=== PATIENT | male | born 1970 | race Two or more races ===

== ENCOUNTER 2018-02-09 01:57 | Emergency (ER) | payer SELFPAY ==
[~2018-02-09] VITALS: Ht 170.2 cm; Wt 77.1 kg
--- NOTE | 2018-02-09 02:50 | NUR ---
Dr. Francisco at bedside for MSE.
[2018-02-09] MEDS: HYDROMORPHONE 1 MG/1 ML DISP.SYRIN IM ONE (02:56)
[2018-02-09] MEDS ORDERED: HYDROMORPHONE 2 MG/1 ML DISP.SYRIN ONE (02:56)
[2018-02-09] MEDS ORDERED: diphenhydrAMINE 50 MG/1 ML VIAL IV ONE (03:00)
[2018-02-09] MEDS ORDERED: TDAP DIPH,PERTUSS,TET VAC/PF 0.5 ML DISP.SYRIN IM ONE (03:03)
[2018-02-09] MEDS ORDERED: diphenhydrAMINE 50 MG/1 ML VIAL ONE (03:03)
[2018-02-09] MEDS: diphenhydrAMINE 50 MG/1 ML VIAL IM ONE (03:08)
[2018-02-09] MEDS: TDAP DIPH,PERTUSS,TET VAC/PF 0.5 ML DISP.SYRIN IM ONE (03:08)
[2018-02-09] MEDS: LIDOCAINE HCL 1% 20 ML VIAL IJ ONE (03:09)
--- NOTE | 2018-02-09 04:29 | NUR ---
Patient discharged to home in stable conditon. Written and verbal after care instructions given. Patient verbalizes understanding of instructions. Pt ambulated out of ER with steady gait, no acute signs of distress, VSS, all belongings taken.
[2018-02-09 04:31] VITALS: BP 134/74
== END 2018-02-09 04:31 | disposition home or self-care (01) ==
LOC: ER 02:02
DX: L02.414 Cutaneous abscess of left upper limb (principal); F11.10 Opioid abuse, uncomplicated; B19.20 Unspecified viral hepatitis C without hepatic coma; I10 Essential (primary) hypertension; E78.5 Hyperlipidemia, unspecified; F17.200 Nicotine dependence, unspecified, uncomplicated; Z88.2 Allergy status to sulfonamides
CPT/HCPCS: 90715; A4217; A4663; J1170; J1200; J3490